=== PATIENT | female | born 2000 | race Caucasian/White ===

== ENCOUNTER 2018-04-29 19:48 | Outpatient (CLI) | payer MEDICAID ==
[2018-04-29 21:23] LABS: ADD MAN DIFF? NO
[2018-04-29 21:28] LABS: WHITE BLOOD COUNT 10.1 10^3/ul (4.8-10.8)
[2018-04-29 21:28] LABS: BASOPHILS % 0.4 % (0.0-2.0); EOSINOPHILS # 0.1 10^3/ul (0.0-0.5); HEMATOCRIT 34.8 % (37.0-47.0); HEMOGLOBIN 11.6 g/dl (12.0-16.0); LYMPHOCYTES # 2.6 10^3/ul (0.8-2.9); LYMPHOCYTES % 25.4 % (18.0-55.0); MEAN CORPUSCULAR HEMOGLOBIN 29.8 pg (29.0-33.0); MEAN CORPUSCULAR HGB CONC 33.3 g/dl (32.0-37.0); MEAN CORPUSCULAR VOLUME 89.5 fl (72.0-104.0); MONOCYTE # 0.7 10^3/ul (0.3-0.9); MONOCYTES % 6.4 % (0.0-13.0); NEUTROPHIL # 6.7 10^3/ul (1.6-7.5); NEUTROPHILS % 66.5 % (30.0-74.0); PLATELET COUNT 266 10^3/UL (140-415); RED BLOOD COUNT 3.89 10^6/ul (4.20-5.40); RED CELL DISTRIBUTION WIDTH 13.5 % (11.5-14.5)
[2018-04-29] MEDS: ACETAMINOPHEN 500 MG TAB PO (22:23)
[2018-04-29 23:21] LABS: ADD UMIC NO; UR ASCORBIC ACID 20 mg/dL (NEGATIVE); UR BILIRUBIN (Dip) NEGATIVE (NEGATIVE); UR BLOOD (Dip) NEGATIVE (NEGATIVE); UR CLARITY SLIGHTLY CLOUDY (CLEAR); UR COLOR YELLOW (YELLOW); UR GLUCOSE (Dip) NEGATIVE (NEGATIVE); UR KETONES (Dip) 1+ mg/dL (NEGATIVE); UR LEUKOCYTE ESTERASE (Dip) NEGATIVE Leu/ul (NEGATIVE); UR MUCUS MODERATE /HPF (NONE SEEN); UR NITRITE (Dip) NEGATIVE (NEGATIVE); UR RBC 1 /HPF (0-5); UR SPECIFIC GRAVITY (Dip) 1.021 (1.003-1.030); UR SQUAMOUS EPITHELIAL CELL FEW /HPF (FEW); UR TOTAL PROTEIN (Dip) NEGATIVE (NEGATIVE); UR UROBILINOGEN (Dip) NEGATIVE (NEGATIVE); UR WBC 3 /HPF (0-5)
[2018-04-30] MEDS ORDERED: ACETAMINOPHEN 500 MG TAB PO (01:00)
== END 2018-04-29 23:30 | disposition home or self-care (01) ==
LOC: OBT 19:48 → L-D 19:55 → OBT 23:30
DX: O26.892 Other specified pregnancy related conditions, second trimester (principal); Z3A.20 20 weeks gestation of pregnancy; R10.9 Unspecified abdominal pain; W19.XXXD Unspecified fall, subsequent encounter
CPT/HCPCS: 76815; 76817; 81001; 81003; 85025; 85460; 86850; 86900; 86901

== ENCOUNTER 2018-06-19 08:50 | Outpatient (CLI) | payer MEDICAID ==
[2018-06-19] MEDS: LACTATED RINGER'S 1,000 ML IV (10:08)
[2018-06-19 10:17] LABS: ADD UMIC YES; UR ASCORBIC ACID NEGATIVE (NEGATIVE); UR BACTERIA FEW /HPF (NONE SEEN); UR BILIRUBIN (Dip) NEGATIVE (NEGATIVE); UR BLOOD (Dip) NEGATIVE (NEGATIVE); UR CLARITY SLIGHTLY CLOUDY (CLEAR); UR COLOR YELLOW (YELLOW); UR GLUCOSE (Dip) NEGATIVE (NEGATIVE); UR KETONES (Dip) NEGATIVE (NEGATIVE); UR LEUKOCYTE ESTERASE (Dip) 2+ Leu/ul (NEGATIVE); UR NITRITE (Dip) NEGATIVE (NEGATIVE); UR RBC 2 /HPF (0-5); UR SQUAMOUS EPITHELIAL CELL MODERATE /HPF (FEW); UR TOTAL PROTEIN (Dip) NEGATIVE (NEGATIVE); UR UROBILINOGEN (Dip) NEGATIVE (NEGATIVE); UR WBC 4 /HPF (0-5)
[2018-06-19] MEDS ORDERED: SOD CHLORIDE 0.9% 1,000 ML IV (12:30)
[2018-06-19] MEDS: CEFTRIAXONE 1 GM/50 ML (PMX) 50 ML IVPB (12:53)
== END 2018-06-19 14:47 | disposition home or self-care (01) ==
LOC: OBT 08:50 → L-D 08:50 → OBT 14:47
DX: O62.9 Abnormality of forces of labor, unspecified (principal); Z3A.27 27 weeks gestation of pregnancy
CPT/HCPCS: 76817; 81001; 87086; 96360; 96361

== ENCOUNTER 2018-09-03 17:00 | Outpatient (CLI) | payer MEDICAID ==
[2018-09-03 17:58] LABS: ADD UMIC YES; UR ASCORBIC ACID NEGATIVE (NEGATIVE); UR BILIRUBIN (Dip) NEGATIVE (NEGATIVE); UR BLOOD (Dip) NEGATIVE (NEGATIVE); UR CLARITY CLEAR (CLEAR); UR COLOR YELLOW (YELLOW); UR GLUCOSE (Dip) NEGATIVE (NEGATIVE); UR KETONES (Dip) NEGATIVE (NEGATIVE); UR LEUKOCYTE ESTERASE (Dip) TRACE Leu/ul (NEGATIVE); UR NITRITE (Dip) NEGATIVE (NEGATIVE); UR RBC 0 /HPF (0-5); UR SPECIFIC GRAVITY (Dip) 1.008 (1.003-1.030); UR SQUAMOUS EPITHELIAL CELL FEW /HPF (FEW); UR TOTAL PROTEIN (Dip) NEGATIVE (NEGATIVE); UR UROBILINOGEN (Dip) NEGATIVE (NEGATIVE); UR WBC 1 /HPF (0-5)
[2018-09-03 18:09] LABS: ADD MAN DIFF? NO
[2018-09-03 18:10] LABS: BASOPHILS % 0.6 % (0.0-2.0); EOSINOPHILS # 0.1 10^3/ul (0.0-0.5); EOSINOPHILS % 1.4 % (0.0-7.0); HEMATOCRIT 29.9 % (37.0-47.0); HEMOGLOBIN 9.5 g/dl (12.0-16.0); LYMPHOCYTES # 2.5 10^3/ul (0.8-2.9); LYMPHOCYTES % 35.3 % (18.0-55.0); MEAN CORPUSCULAR HEMOGLOBIN 26.4 pg (29.0-33.0); MEAN CORPUSCULAR HGB CONC 31.8 g/dl (32.0-37.0); MEAN CORPUSCULAR VOLUME 83.1 fl (72.0-104.0); MEAN PLATELET VOLUME 10.3 fl (7.4-10.4); MONOCYTE # 0.5 10^3/ul (0.3-0.9); MONOCYTES % 7.6 % (0.0-13.0); NEUTROPHIL # 3.8 10^3/ul (1.6-7.5); NEUTROPHILS % 54.8 % (30.0-74.0); PLATELET COUNT 261 10^3/UL (140-415); RED CELL DISTRIBUTION WIDTH 13.7 % (11.5-14.5)
== END 2018-09-03 18:58 | disposition home or self-care (01) ==
LOC: OBT 17:00 → L-D 17:00 → OBT 18:58
DX: O23.43 Unspecified infection of urinary tract in pregnancy, third trimester (principal); Z3A.38 38 weeks gestation of pregnancy
CPT/HCPCS: 76818; 81001; 85025

== ENCOUNTER 2018-09-04 18:16 | Outpatient (CLI) | payer MEDICAID ==
[2018-09-04 19:29] LABS: ADD UMIC NO; UR ASCORBIC ACID NEGATIVE (NEGATIVE); UR BILIRUBIN (Dip) NEGATIVE (NEGATIVE); UR BLOOD (Dip) NEGATIVE (NEGATIVE); UR CLARITY CLEAR (CLEAR); UR COLOR YELLOW (YELLOW); UR GLUCOSE (Dip) NEGATIVE (NEGATIVE); UR KETONES (Dip) TRACE mg/dL (NEGATIVE); UR LEUKOCYTE ESTERASE (Dip) NEGATIVE Leu/ul (NEGATIVE); UR NITRITE (Dip) NEGATIVE (NEGATIVE); UR SPECIFIC GRAVITY (Dip) 1.008 (1.003-1.030); UR TOTAL PROTEIN (Dip) NEGATIVE (NEGATIVE); UR UROBILINOGEN (Dip) NEGATIVE (NEGATIVE)
== END 2018-09-04 21:15 | disposition home or self-care (01) ==
LOC: OBT 18:16 → L-D 18:16 → OBT 21:15
DX: O26.893 Other specified pregnancy related conditions, third trimester (principal); R10.2 Pelvic and perineal pain; Z3A.38 38 weeks gestation of pregnancy
CPT/HCPCS: 76818; 81003; 87086

== ENCOUNTER 2018-09-10 | Inpatient (IN) | payer MEDICAID ==
[2018-09-10] MEDS: ACETAMINOPHEN 500 MG TAB PO (01:42)
[2018-09-10] MEDS ORDERED: IBUPROFEN 600 MG TAB PO (04:30)
[2018-09-10] MEDS ORDERED: OXYTOCIN 30 UNITS/LR 500 ML IV (04:30)
[2018-09-10] MEDS: LACTATED RINGER'S 1,000 ML IV ×5 (05:23→23:49)
[2018-09-10] MEDS: OXYTOCIN 30 UNITS/LR 500 ML IV (05:29)
[2018-09-10 06:14] LABS: ADD MAN DIFF? NO
[2018-09-10 06:19] LABS: BASOPHILS % 0.4 % (0.0-2.0); EOSINOPHILS # 0.1 10^3/ul (0.0-0.5); EOSINOPHILS % 0.9 % (0.0-7.0); HEMATOCRIT 31.3 % (37.0-47.0); HEMOGLOBIN 10.1 g/dl (12.0-16.0); LYMPHOCYTES # 2.6 10^3/ul (0.8-2.9); LYMPHOCYTES % 34.9 % (18.0-55.0); MEAN CORPUSCULAR HEMOGLOBIN 26.6 pg (29.0-33.0); MEAN CORPUSCULAR HGB CONC 32.3 g/dl (32.0-37.0); MEAN CORPUSCULAR VOLUME 82.4 fl (72.0-104.0); MEAN PLATELET VOLUME 11.2 fl (7.4-10.4); MONOCYTE # 0.5 10^3/ul (0.3-0.9); NEUTROPHIL # 4.2 10^3/ul (1.6-7.5); NEUTROPHILS % 56.5 % (30.0-74.0); PLATELET COUNT 244 10^3/UL (140-415)
[2018-09-10 06:19] LABS: WHITE BLOOD COUNT 7.4 10^3/ul (4.8-10.8)
[2018-09-10 06:37] LABS: INR 0.96; PROTIME 12.9 Sec (11.9-14.9)
[2018-09-10 06:38] LABS: PARTIAL THROMBOPLASTIN TIME 30.5 Sec (23.0-35.0)
[2018-09-10 07:31] LABS: HEPATITIS B SURFACE ANTIGEN NEGATIVE (NEGATIVE)
[2018-09-10] MEDS: MINERAL OIL LIGHT 10 ML VIAL TOP (08:00)
[2018-09-10] MEDS: AMPICILLIN 2 GM/NS (PMX) 100 ML IV ×2 (12:23→13:40)
[2018-09-10] MEDS: BUTORPHANOL 2 MG INJ IV (17:53)
[2018-09-10] MEDS ORDERED: DIPHENHYDRAMINE 50 MG INJ IV (20:00)
[2018-09-10] MEDS ORDERED: KETOROLAC 30 MG INJ IV (20:00)
[2018-09-10] MEDS ORDERED: NALOXONE (0.4 MG/ML) INJ IV (20:00)
[2018-09-10] MEDS ORDERED: HYDROmorphONE 0.5 MG/0.5 ML SYG IV ×2 (20:00)
[2018-09-10 20:48] LABS: RAPID PLASMA REAGIN NONREACTIVE (NR)
[2018-09-10] MEDS: FENTAnyl 2MCG/ML-ROPIV 0.2% 100 ML BAG EPI (20:49)
[2018-09-11] MEDS: FENTAnyl 2MCG/ML-ROPIV 0.2% 100 ML BAG EPI ×3 (03:00→13:23)
[2018-09-11] MEDS: LACTATED RINGER'S 1,000 ML IV (08:15)
[2018-09-11] MEDS: ONDANSETRON 4 MG INJ IV ×2 (09:50→16:02)
[2018-09-11] MEDS: METHYLERGONOVINE 0.2 MG INJ IM (15:25)
[2018-09-11] MEDS: CARBOPROST 250 MCG INJ IM (15:34)
[2018-09-11] MEDS: MISOPROSTOL 200 MCG TAB PR (15:34)
[2018-09-11] MEDS: OXYTOCIN 30 UNITS/LR 500 ML IV ×4 (15:35→22:13)
[2018-09-11] MEDS: LIDOCAINE 1% (MPF) 30 ML INJ INJ (15:40)
[2018-09-11] MEDS ORDERED: SENNA/DOCUSATE NA (8.6MG/50MG) TAB PO (16:00)
[2018-09-11] MEDS ORDERED: OXYCODONE/ASPIRIN (4.88/325) TAB PO ×2 (16:00)
[2018-09-11] MEDS ORDERED: METHYLERGONOVINE 0.2 MG INJ IM (16:00)
[2018-09-11] MEDS ORDERED: NACL 0.9% 3 ML SYG IV (16:00)
[2018-09-11] MEDS ORDERED: OXYTOCIN 30 UNITS/LR 500 ML IV (16:00)
[2018-09-11] MEDS ORDERED: CARBOPROST 250 MCG INJ IM (16:00)
[2018-09-11] MEDS ORDERED: MISOPROSTOL 200 MCG TAB PR (16:00)
[2018-09-11] MEDS ORDERED: DIPHENHYDRAMINE 25 MG CAP PO (16:00)
[2018-09-11] MEDS: ACETAMINOPHEN 325 MG TAB PO (16:15)
[2018-09-11] MEDS: CEFAZOLIN 2 GM/50 ML (PMX) 50 ML IVPB ×2 (16:18→22:15)
[2018-09-11 16:28] LABS: ADD MAN DIFF? NO
[2018-09-11 16:30] LABS: WHITE BLOOD COUNT 17.4 10^3/ul (4.8-10.8)
[2018-09-11 16:30] LABS: BASOPHIL # 0.1 10^3/ul (0.0-0.1); BASOPHILS % 0.3 % (0.0-2.0); EOSINOPHILS % 0.1 % (0.0-7.0); HEMATOCRIT 31.5 % (37.0-47.0); HEMOGLOBIN 9.9 g/dl (12.0-16.0); LYMPHOCYTES # 2.4 10^3/ul (0.8-2.9); LYMPHOCYTES % 13.8 % (18.0-55.0); MEAN CORPUSCULAR HEMOGLOBIN 26.7 pg (29.0-33.0); MEAN CORPUSCULAR HGB CONC 31.4 g/dl (32.0-37.0); MEAN CORPUSCULAR VOLUME 84.9 fl (72.0-104.0); MONOCYTE # 1.3 10^3/ul (0.3-0.9); MONOCYTES % 7.4 % (0.0-13.0); NEUTROPHIL # 13.6 10^3/ul (1.6-7.5); NEUTROPHILS % 78.1 % (30.0-74.0); PLATELET COUNT 252 10^3/UL (140-415); RED BLOOD COUNT 3.71 10^6/ul (4.20-5.40); RED CELL DISTRIBUTION WIDTH 14.4 % (11.5-14.5)
[2018-09-11 19:40] LABS: ADD UMIC YES; UR ASCORBIC ACID NEGATIVE (NEGATIVE); UR BILIRUBIN (Dip) NEGATIVE (NEGATIVE); UR BLOOD (Dip) 3+ mg/dL (NEGATIVE); UR CLARITY CLEAR (CLEAR); UR COLOR AMBER (YELLOW); UR GLUCOSE (Dip) NEGATIVE (NEGATIVE); UR KETONES (Dip) TRACE mg/dL (NEGATIVE); UR LEUKOCYTE ESTERASE (Dip) NEGATIVE Leu/ul (NEGATIVE); UR NITRITE (Dip) NEGATIVE (NEGATIVE); UR RBC > 182 /HPF (0-5); UR SPECIFIC GRAVITY (Dip) 1.011 (1.003-1.030); UR SQUAMOUS EPITHELIAL CELL FEW /HPF (FEW); UR TOTAL PROTEIN (Dip) 1+ mg/dl (NEGATIVE); UR UROBILINOGEN (Dip) 1+ mg/dL (NEGATIVE); UR WBC 20 /HPF (0-5)
[2018-09-11] MEDS: POLYSACCHARIDE IRON COMPLEX CAP PO (21:25)
[2018-09-11] MEDS: SENNA/DOCUSATE NA (8.6MG/50MG) TAB PO (21:25)
[2018-09-11] MEDS: WITCH HAZEL/GLYCERIN PAD PR (22:16)
[2018-09-11] MEDS: BENZOCAINE 20% 56 ML SPRAY TOP (22:16)
[2018-09-11] MEDS: LANOLIN HPA 1 PKT TOP (22:16)
[2018-09-11] MEDS: IBUPROFEN 600 MG TAB PO (23:52)
[2018-09-12] MEDS: CEFAZOLIN 2 GM/50 ML (PMX) 50 ML IVPB ×3 (04:23→16:47)
[2018-09-12] MEDS: IBUPROFEN 600 MG TAB PO ×4 (05:32→23:54)
[2018-09-12] MEDS ORDERED: LACTATED RINGER'S 1,000 ML IV (06:00)
[2018-09-12 06:14] LABS: ADD MAN DIFF? NO
[2018-09-12 06:34] LABS: ABNORMAL IP MESSAGE 1; BASOPHILS % 0.2 % (0.0-2.0); EOSINOPHILS # 0.1 10^3/ul (0.0-0.5); EOSINOPHILS % 0.3 % (0.0-7.0); HEMATOCRIT 16.9 % (37.0-47.0); LYMPHOCYTES % 17.6 % (18.0-55.0); MEAN CORPUSCULAR HEMOGLOBIN 27.7 pg (29.0-33.0); MEAN CORPUSCULAR HGB CONC 33.7 g/dl (32.0-37.0); MEAN PLATELET VOLUME 11.3 fl (7.4-10.4); MONOCYTE # 1.5 10^3/ul (0.3-0.9); MONOCYTES % 8.6 % (0.0-13.0); NEUTROPHIL # 12.5 10^3/ul (1.6-7.5); NEUTROPHILS % 72.8 % (30.0-74.0); PLATELET COUNT 163 10^3/UL (140-415); RED BLOOD COUNT 2.06 10^6/ul (4.20-5.40)
[2018-09-12 06:34] LABS: WHITE BLOOD COUNT 17.2 10^3/ul (4.8-10.8)
[2018-09-12 06:39] LABS: HEMOGLOBIN 5.7 g/dl (12.0-16.0); POSITIVE DIFF @See below
[2018-09-12] MEDS: DIPHENHYDRAMINE 50 MG CAP PO (08:08)
[2018-09-12] MEDS: ACETAMINOPHEN 325 MG TAB PO (08:09)
[2018-09-12] MEDS ORDERED: SOD CHLORIDE 0.9% 1,000 ML IV (09:00)
[2018-09-12] MEDS: POLYSACCHARIDE IRON COMPLEX CAP PO ×2 (09:10→21:48)
[2018-09-12] MEDS: SENNA/DOCUSATE NA (8.6MG/50MG) TAB PO ×2 (09:10→21:48)
[2018-09-12 10:19] LABS: IMMEDIATE SPIN CROSSMATCH 1 2
[2018-09-12 22:26] LABS: ADD MAN DIFF? NO
[2018-09-12 22:28] LABS: WHITE BLOOD COUNT 14.9 10^3/ul (4.8-10.8)
[2018-09-12 22:28] LABS: BASOPHILS % 0.2 % (0.0-2.0); EOSINOPHILS # 0.1 10^3/ul (0.0-0.5); EOSINOPHILS % 0.7 % (0.0-7.0); HEMATOCRIT 23.1 % (37.0-47.0); HEMOGLOBIN 7.8 g/dl (12.0-16.0); LYMPHOCYTES # 3.1 10^3/ul (0.8-2.9); LYMPHOCYTES % 20.6 % (18.0-55.0); MEAN CORPUSCULAR HEMOGLOBIN 28.4 pg (29.0-33.0); MEAN CORPUSCULAR HGB CONC 33.8 g/dl (32.0-37.0); MEAN PLATELET VOLUME 11.3 fl (7.4-10.4); MONOCYTE # 1.1 10^3/ul (0.3-0.9); MONOCYTES % 7.4 % (0.0-13.0); NEUTROPHIL # 10.5 10^3/ul (1.6-7.5); NEUTROPHILS % 70.6 % (30.0-74.0); PLATELET COUNT 173 10^3/UL (140-415); RED BLOOD COUNT 2.75 10^6/ul (4.20-5.40); RED CELL DISTRIBUTION WIDTH 14.5 % (11.5-14.5)
[2018-09-13] MEDS: IBUPROFEN 600 MG TAB PO ×2 (07:14→11:39)
[2018-09-13] MEDS: POLYSACCHARIDE IRON COMPLEX CAP PO (09:16)
[2018-09-13] MEDS: SENNA/DOCUSATE NA (8.6MG/50MG) TAB PO (09:16)
== END 2018-09-13 13:40 | disposition home or self-care (01) | DRG 807 ==
LOC: OBT → L-D → PP1 09-11 19:58 → OBT 04:10 → L-D 04:10
PROVIDERS: Obstetrics & Gynecology
PROC: 10E0XZZ Delivery of Products of Conception, External Approach (ICD-10-PCS; principal; 2018-09-11)
PROC: 0W8NXZZ Division of Female Perineum, External Approach (ICD-10-PCS; 2018-09-11)
PROC: 30233N1 Transfusion of Nonautologous Red Blood Cells into Peripheral Vein, Percutaneous Approach (ICD-10-PCS; 2018-09-12)
DX: O99.214 Obesity complicating childbirth (principal); Z37.0 Single live birth; E66.9 Obesity, unspecified; O72.1 Other immediate postpartum hemorrhage; O90.81 Anemia of the puerperium; D64.9 Anemia, unspecified; Z3A.39 39 weeks gestation of pregnancy; Z91.81 History of falling
CPT/HCPCS: 36430; 62322; 76815; 76818; 81001; 85025; 85610; 85730; 86592; 86850; 86900; 86901; 86920; 87040-91; 87086; 87340